=== PATIENT | female | born 1975 | race African-American/Black ===

== ENCOUNTER 2017-01-14 03:47 | Emergency (ER) | payer OTHER ==
[~2017-01-14] VITALS: Ht 162.6 cm; Wt 68.0 kg
[~2017-01-14 03:47] MED LIST: AMITRIPTYLINE H10 M3 PO; CLARITIN10 MG PO; DICLOFENAC SODI25 MG PO; ORTHO TRI-CYCL1 EACH PO; PEPCID40 MG PO; PREDNISONE 20 M20 MG PO
[2017-01-14 03:50] VITALS: BP 150/98
[2017-01-14] MEDS ORDERED: CLARITIN10 MG PO (03:53)
[2017-01-14] MEDS ORDERED: ATIVAN0.5 MG PO (03:54)
== END 2017-01-14 04:54 | disposition home or self-care (01) ==
LOC: ER 03:47
DX: R04.0 Epistaxis (principal); F41.9 Anxiety disorder, unspecified; F32.9 Major depressive disorder, single episode, unspecified; F10.99 Alcohol use, unspecified with unspecified alcohol-induced disorder

== ENCOUNTER 2018-11-09 22:38 | Emergency (ER) | payer OTHER ==
[~2018-11-09] VITALS: Ht 160 cm; Wt 65.8 kg
[~2018-11-09 22:38] MED LIST changes: +ATIVAN0.5 MG PO; +CITRATE OF MAG296 ML PO; +COLACE100 MG PO; +PIRMELLA1 EACH PO
[2018-11-09 22:43] VITALS: BP 121/83
[2018-11-09] MEDS ORDERED: MIRALAX17 GM PO (23:00)
[2018-11-09] MEDS ORDERED: ANUSOL-HC25 MG RECTAL (23:00)
== END 2018-11-09 23:07 | disposition home or self-care (01) ==
LOC: ER 22:38
DX: K64.4 Residual hemorrhoidal skin tags (principal); F41.9 Anxiety disorder, unspecified; G43.909 Migraine, unspecified, not intractable, without status migrainosus; F32.9 Major depressive disorder, single episode, unspecified

== ENCOUNTER 2021-01-20 20:56 | Emergency (ER) | payer OTHER ==
[~2021-01-20] VITALS: Ht 160 cm; Wt 68.0 kg
[~2021-01-20 20:56] MED LIST changes: +ANUSOL-HC25 MG RECTAL; +MIRALAX17 GM PO
[2021-01-20] MEDS ORDERED: RIZATRIPTAN10 M1 PO (21:25)
[2021-01-20 21:57] LABS: ABSOLUTE NEUTROPHILS 1.8 thou/uL (1.4-8.2); BASOPHILS 0.4 % (0.0-2.0); EOSINOPHILS 1.6 % (0.0-3.0); HEMATOCRIT 39.8 % (37.0-47.0); HEMOGLOBIN 13.5 gm/dL (12.0-15.0); LYMPHOCYTES 47.2 % (24.0-44.0); MCH 31.2 pg (26.0-34.0); MCHC 33.9 g/dL (28.0-37.0); MCV 92.1 fL (80.0-100.0); MONOCYTES 10.6 % (1.0-8.0); PLATELET COUNT 423 thou/uL (150-400); POLYS 40.2 % (36.0-66.0); RBC 4.32 mil/uL (4.20-5.00); RDW 12.6 % (10.5-14.5); WBC 4.5 thou/uL (4.0-11.0)
[2021-01-20 22:10] LABS: ANION GAP 10 mmol/L (7-16); BUN 13 mg/dL (7-18); CALCIUM 8.8 mg/dL (8.5-10.1); CHLORIDE 103 mmol/L (98-107); CO2 27 mmol/L (21-32); GLUCOSE 90 mg/dL (74-106); POTASSIUM 3.9 mmol/L (3.5-5.1); SODIUM 140 mmol/L (136-145)
[2021-01-20 22:17] LABS: ALBUMIN 3.7 g/dL (3.4-5.0); SGOT 17 U/L (15-37); SGPT 33 U/L (14-59); TOTAL BILIRUBIN 0.4 mg/dL (0.2-1.0); TOTAL PROTEIN 7.6 g/dL (6.4-8.2); TROPONIN-I <0.06 ng/mL (<0.06)
[2021-01-20 23:15] VITALS: BP 128/83
--- NOTE | 2021-01-21 07:13 | EKG ---
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
== END 2021-01-20 23:16 | disposition home or self-care (01) ==
LOC: ER 20:56
PROVIDERS: Physician Assistant
DX: G43.909 Migraine, unspecified, not intractable, without status migrainosus (principal); F41.9 Anxiety disorder, unspecified; Z79.899 Other long term (current) drug therapy